=== PATIENT | male | born 1980 | race Two or more races ===

== ENCOUNTER 2025-02-04 12:40 | Emergency (ER) | payer BC ==
[2025-02-04] MEDS: Ketorolac 30 MG/ML SDV IVPUSH ONE (14:09)
[2025-02-04] MEDS: Ondansetron 4 MG/2 ML SDV IVPUSH ONE (14:09)
[2025-02-04] MEDS: HYDROmorphone 0.5 MG/0.5 ML Syringe IVPUSH ONE (14:09)
[2025-02-04] MEDS: Sodium Chloride 0.9% 1,000 ML IV STA (14:10)
[2025-02-04 14:25] LABS: APPEARANCE,URINE SLT CLOUDY (Clear); BILIRUBIN,URINE NEGATIVE (Negative); COLOR,URINE YELLOW (Yellow); GLUCOSE,URINE NEGATIVE (Negative); KETONES,URINE NEGATIVE (Negative); LEUKOCYTE ESTERASE,URINE NEGATIVE (Negative); NITRITE,URINE NEGATIVE (Negative); OCCULT BLOOD,URINE 2+ (Negative); PH,URINE 6.5 (5.0-8.0); PROTEIN,URINE 1+ (Negative); UROBILINOGEN,URINE 0.2 (0.2-1.0)
[2025-02-04 14:26] LABS: BASOPHILS ABSOLUTE AUTO 0.1 K/mm3 (0.0-0.2); BASOPHILS PERCENT AUTO 0.6 % (0.0-1.0); EOSINOPHILS PERCENT AUTO 0.3 % (0.0-6.0); HEMATOCRIT 33.8 % (42.0-52.0); HEMOGLOBIN 10.3 gm/dl (14.0-18.0); IMMATURE GRAN ABSOLUTE AUTO 0.04 K/mm3 (0.00-0.05); IMMATURE GRAN PERCENT AUTO 0.3 % (0.0-0.4); LYMPHOCYTES ABSOLUTE AUTO 1.6 K/mm3 (1.0-4.8); LYMPHOCYTES PERCENT AUTO 13.4 % (24.0-44.0); MEAN CORPUSCULAR HGB CONC 30.5 g/dl (32.0-36.0); MEAN PLATELET VOLUME 9.8 fl (9.4-12.4); MONOCYTES PERCENT AUTO 8.3 % (0.0-8.0); NEUTROPHILS PERCENT AUTO 77.1 % (41.0-71.0); PLATELET COUNT,PLT 441 K/mm3 (150-400); WHITE BLOOD CELL COUNT,WBC 11.63 K/mm3 (3.9-11.3)
[2025-02-04 14:38] LABS: RBC,URINE 75-100 /hpf (0-5)
[2025-02-04 14:39] LABS: BACTERIA,URINE FEW /hpf (FEW); EPITHELIAL CELLS,URINE 0-5 /hpf (0-5); MUCUS,URINE MODERATE /hpf (FEW); WBC,URINE 0-5 /hpf (0-5)
[2025-02-04 14:44] LABS: ALBUMIN 3.3 g/dl (3.4-5.0); ANION GAP 7.7 (5-15); BILIRUBIN TOTAL 0.7 mg/dL (0.2-1.0); BUN/CREATININE RATIO 14.7 (14-18); C-REACTIVE PROTEIN 0.39 mg/dL (<0.30); CALCIUM 8.6 mg/dL (8.5-10.1); CREATININE 1.5 mg/dL (0.7-1.3); EST CRCL DRUG DOSING (CG) 75.89 mL/min; POTASSIUM,K 2.7 mEq/L (3.5-5.1); PROTEIN TOTAL,TP 6.7 g/dl (6.4-8.2)
[2025-02-04] MEDS: Potassium Chloride 20 MEQ Tab.ER PO ONE (15:42)
[2025-02-04] MEDS: Tamsulosin 0.4 MG Cap.ER PO ONE (15:42)
[2025-02-04 18:09] LABS: SLIDE REVIEW ABNORMAL SMEAR
== END 2025-02-04 16:30 | disposition home or self-care (01) ==
LOC: JD.ED 12:40
DX: N20.2 Calculus of kidney with calculus of ureter (principal); E87.6 Hypokalemia; Z88.0 Allergy status to penicillin; Z88.2 Allergy status to sulfonamides
CPT/HCPCS: 36415; 74176; 80053; 81001; 85025; 86140; 96361; 96374; 96375; 99284; A9270; J1885; J2405; J7030